=== PATIENT | male | born 1980 | race Caucasian/White ===

== ENCOUNTER 2018-10-15 12:44 | Emergency (ER) | payer BC | END 2018-10-15 15:19 | disposition left against medical advice (07) | LOC: ERS 12:44 | DX: Z53.21 Procedure and treatment not carried out due to patient leaving prior to being seen by health care provider (principal) | CPT/HCPCS: 36416 ==

== ENCOUNTER 2020-01-30 13:50 | Day surgery (SDC) | payer BC ==
[~2020-01-30 13:50] MED LIST: Lidocaine 1% PF 5 ML VIAL ONE; PROPOFOL 200 MG/20 ML VIAL ONE; Succinylcholine Chloride 20 MG/ML 10 ml SYRINGE FS ONE
[2020-01-30] MEDS ORDERED: Ondansetron PF 4 MG/2 ML Vial ONE (14:35)
[2020-01-30] MEDS ORDERED: Midazolam HCl 2 mg/2 ml Vial ONE (16:42)
[2020-01-30] MEDS ORDERED: Fentanyl 100 MCG/2 ML VIAL ONE (16:42)
--- NOTE | 2020-01-30 19:54 | CON ---
DATE OF CONSULTATION: 01/30/2020 CHIEF COMPLAINT: "Steak stuck in my esophagus." HISTORY OF PRESENT ILLNESS: Mr. Roper is a 39-year-old man, who ate a piece of steak at 11 o'clock last night, had it get lodged in his cervical esophageal level. He has been having to spit his saliva out ever since and he can only take a couple of sips of water and then it comes back up. Has some pressure-type pain in the lower cervical level to the level of the sternal notch with that. He has had no hematemesis. He has had occasional dysphagia to solids that he can usually wash down with water over the last year. He has had reflux several nights per week, usually worse at night than during the day. He gets heartburn but has not taken medications for this. PAST MEDICAL HISTORY: Negative. PAST SURGICAL HISTORY: He had lung surgery to remove blebs from his right lung. FAMILY HISTORY: Negative for GI malignancies. SOCIAL HISTORY: He drinks five beers per day. He smokes five cigarettes per day. No drugs. ALLERGIES: NO KNOWN DRUG ALLERGIES. MEDICATIONS: Prior to admission, none. REVIEW OF SYSTEMS: Negative x10 systems reviewed, except as stated in history of present illness. PHYSICAL EXAMINATION: VITAL SIGNS: Pulse 97, temperature 97.7, and blood pressure 136/77. GENERAL: He is in no acute distress. Alert and oriented x3. EYES: Have no scleral icterus. Oropharynx is clear without lesions. No cervical or supraclavicular lymphadenopathy. LUNGS: Clear to auscultation bilaterally. HEART: Regular rate and rhythm without murmur. ABDOMEN: Soft, nontender, and nondistended. Bowel sounds are present. EXTREMITIES: No lower extremity edema. IMPRESSION: 1. Esophageal foreign body with steak since 11:00 p.m. last night. 2. Gastroesophageal reflux with nocturnal reflux most nights. RECOMMENDATIONS: 1. EGD with removal of foreign body today. 2. Anticipate discharge home following the procedure. 3. Start pantoprazole 40 mg to be taken 30 minutes to an hour before his evening meal. 4. Follow up in GI clinic and if necessary followup endoscopy or dilation can be performed as an outpatient. Job ID: [id number]
--- NOTE | 2020-01-30 20:23 | OP ---
DATE OF PROCEDURE: 01/30/2020 PROCEDURE PERFORMED: Esophagogastroduodenoscopy with removal of esophageal foreign body and esophageal biopsy. PREOPERATIVE DIAGNOSIS: Esophageal foreign body with food bolus impaction. DESCRIPTION OF PROCEDURE: Informed consent was obtained from the patient. He was sedated with general anesthesia. The bite block was placed and the endoscope was advanced easily to the second portion of the duodenum and retroflexion was performed in the stomach. As the endoscope was advanced in the esophagus, a large meat bolus was encountered impacted in the distal esophagus. This was grasped with a snare and pulled out through the patient's mouth. The scope was reinserted and changes of vertical furrows were noted in the esophagus. There was a ring of ulceration. There were a couple of millimeters in diameter, but went circumferentially all the way around the esophagus in the distal esophagus with an associated narrowing in that area. This was where the food bolus was impacted. The stomach was normal including retroflexed views. The pylorus and first and second portions of the duodenum were normal. IMPRESSION: 1. Large meat bolus impaction removed with a snare. 2. Circumferential ulceration and stenosis at the GE junction at the level of the food impaction. 3. Vertical furrows in the esophagus suggestive of eosinophilic esophagitis. Biopsies were taken from the proximal and distal esophagus. RECOMMENDATIONS: 1. Await histopathology. 2. Start pantoprazole 40 mg daily taken 30 minutes to an hour before supper. 3. Follow up in the office in 2 weeks. Will likely need to go back in and dilate his esophagus in the future. Job ID: [id number]
== END 2020-01-30 18:20 | disposition home or self-care (01) ==
LOC: ERS 13:50 → SDC 14:55
PROVIDERS: ATTEND Internal Medicine Gastroenterology
PROC: 0DB58ZZ Excision of Esophagus, Via Natural or Artificial Opening Endoscopic (ICD-10-PCS; principal; 2020-01-30)
PROC: 0DC58ZZ Extirpation of Matter from Esophagus, Via Natural or Artificial Opening Endoscopic (ICD-10-PCS; principal; 2020-01-30)
DX: T18.128A Food in esophagus causing other injury, initial encounter (principal); K21.00 Gastro-esophageal reflux disease with esophagitis, without bleeding; F17.210 Nicotine dependence, cigarettes, uncomplicated
CPT/HCPCS: 88305; 88312; 88313; 96374; J2250; J2405; J2704; J3010

== ENCOUNTER 2021-03-19 21:37 | Emergency (ER) | payer OTHER, BC | END 2021-03-19 23:58 | LOC: ERS 21:37 | DX: S60.222A Contusion of left hand, initial encounter (principal); V29.40XA Motorcycle driver injured in collision with unspecified motor vehicles in traffic accident, initial encounter | CPT/HCPCS: 99283 ==

== ENCOUNTER 2021-03-21 14:07 | Emergency (ER) | payer OTHER, BC | END 2021-03-21 16:50 | disposition home or self-care (01) | LOC: ERS 14:07 | DX: S60.222A Contusion of left hand, initial encounter (principal); F17.210 Nicotine dependence, cigarettes, uncomplicated; V29.49XA Motorcycle driver injured in collision with other motor vehicles in traffic accident, initial encounter ==

== ENCOUNTER 2021-11-24 12:58 | Emergency (ER) | payer BC, SELFPAY | END 2021-11-24 14:13 | disposition home or self-care (01) | LOC: ERS 12:58 | DX: M62.830 Muscle spasm of back (principal); F17.210 Nicotine dependence, cigarettes, uncomplicated | CPT/HCPCS: 71045 ==

== ENCOUNTER 2025-01-25 18:14 | Emergency (ER) | payer OTHER, SELFPAY ==
[~2025-01-25 18:14] MED LIST changes: +Iopamidol 370 76% 100 ML VIAL ONE; -Lidocaine 1% PF 5 ML VIAL ONE; -PROPOFOL 200 MG/20 ML VIAL ONE; -Succinylcholine Chloride 20 MG/ML 10 ml SYRINGE FS ONE
[2025-01-25] MEDS ORDERED: Ondansetron PF 4 MG/2 ML Vial ONE (21:58)
[2025-01-25] MEDS ORDERED: Ketorolac Tromethamine 30 MG (1 mL) VIAL ONE (21:58)
[2025-01-25] MEDS ORDERED: Famotidine/PF 20 mg/2ml Vial ONE (21:59)
[2025-01-25 22:27] LABS: #Basophils 0.04 10x3/uL (0.0-0.2); #Eosinophils 0.23 10x3/uL (0.0-0.7); #Monocytes 0.59 10x3/uL (0.11-0.59); #Neutrophils 2.16 10x3/uL (1.40-6.50); %Basophils 0.9 % (0.0-1.0); %Eosinophils 5.1 % (0.0-10.0); %Lymphocytes 32.4 % (21.0-51.0); %Monocytes 13.2 % (0.0-10.0); %Neutrophils 48.2 % (42.0-75.0); Hematocrit 45.0 % (42.0-52.0); Hemoglobin 14.9 g/dL (14.0-18.0); Mean Corpuscular Hemoglobin 32.3 pg (27.0-31.0); Mean Corpuscular Volume 97.6 fL (78.0-98.0); Platelet Count 163 10x3/uL (130-400); Red Blood Cell (RBC) Count 4.61 mill/uL (4.70-6.10); White Blood Cell (WBC) Count 4.48 10x3/uL (4.8-10.8)
[2025-01-25 22:39] LABS: ALT (SGPT) 15 U/L (Less than 45); AST (SGOT) 17 U/L (11-34); Albumin 3.9 g/dL (3.1-4.5); Alkaline Phosphatase 101 U/L (40-110); Anion Gap 14 mmol/L (10-20); BUN (Urea Nitrogen) 10 mg/dL (8.9-20.6); Bilirubin, Total 0.6 mg/dL (0.3-1.2); Calc. Creatinine Clearance 0 mL/min (70-130); Calcium 8.6 mg/dL (7.8-10.44); Carbon Dioxide 26 mmol/L (22-29); Chloride 104 mmol/L (98-107); Globulin 2.5 g/dL (2.4-3.5); Glucose 85 mg/dL (70-105); Lipase 18 U/L (8-78); Potassium 4.1 mmol/L (3.5-5.1); Sodium 140 mmol/L (136-145)
[2025-01-26] MEDS ORDERED: Dexamethasone 10 MG/ML VIAL ONE (00:10)
[2025-01-26] MEDS ORDERED: valACYclovir 500 MG TAB ONE (00:10)
== END 2025-01-26 00:49 | disposition home or self-care (01) ==
LOC: ERS 18:14
DX: B02.9 Zoster without complications (principal); R10.13 Epigastric pain; R07.89 Other chest pain; F17.290 Nicotine dependence, other tobacco product, uncomplicated
CPT/HCPCS: 71046; 74177; 76705; 80053; 83605; 83690; 84484; 85025; 93005; 96374; 96375; 96376; J1100; J1308; J1885; J2405; J3010; Q9967